=== PATIENT | female | born 1990 | race Two or more races ===

== ENCOUNTER 2024-06-16 15:54 | Emergency (ER) | payer OTHER ==
[~2024-06-16] VITALS: Ht 154.9 cm; Wt 65.8 kg
[2024-06-16] MEDS ORDERED: 0.9 % SODIUM CHLORIDE 1,000 ML IV SCH (18:00)
[2024-06-16] MEDS ORDERED: LOPERAMIDE HCL 2 MG CAPSULE PO ONE ×2 (18:00→20:20)
[2024-06-16 18:46] LABS: HEMATOCRIT 33.2 % (36.0-45.00); HEMOGLOBIN 10.8 g/dL (12.0-15.00); MEAN CELL VOLUME 88.4 fL (80.00-100.00); MEAN CORPUSCULAR HEMOGLOBIN 28.9 pg (27.00-32.0); MEAN CORPUSCULAR HGB CONC 32.7 g/dl (32.0-36.0); PLATELET COUNT 359 K/uL (150-450); RED BLOOD COUNT 3.75 M/uL (4.00-6.00); RED CELL DISTRIBUTION WIDTH 13.8 % (11.5-14.5)
[2024-06-16 19:06] LABS: CALCIUM 8.6 mg/dL (8.5-10.1); CREATININE SERUM 0.93 mg/dL (0.55-1.02); GFR 69.01; POTASSIUM 3.64 mEq/L (3.5-5.1)
[2024-06-16] MEDS ORDERED: LIDOCAINE HCL 120 ML ML MM ONE (21:00)
[2024-06-16] MEDS ORDERED: LIDOCAINE HCL VISCOUS 20MG/ML BLIST 15ML MM ONE (21:02)
== END 2024-06-16 21:52 | disposition home or self-care (01) ==
LOC: ER 15:56
PROVIDERS: Emergency Medicine
DX: O99.619 Diseases of the digestive system complicating pregnancy, unspecified trimester (principal); K92.89 Other specified diseases of the digestive system; R19.7 Diarrhea, unspecified; Z88.8 Allergy status to other drugs, medicaments and biological substances